=== PATIENT | female | born 1945 | race Caucasian/White ===

== ENCOUNTER 2024-04-23 10:01 | Outpatient (AMB) | payer MEDICARE, SELFPAY ==
--- NOTE | 2024-04-23 10:12 | MHC.OFFWIV ---
Intake Vital Signs 04/23/24 10:28 Height 5 ft 1 in Weight 139 lb BMI 26.3 BP 136/70 Blood Pressure Location Lt brachial Position Sitting Pulse 50 Pulse Source Pulse Oximeter Temp 97.4 F Temp Source Temporal Artery Scan Pulse Oximetry (%) 98 Oxygen Delivery Method Room Air Intake Visit Reasons: [employer]/right foot pain (lobby) Intake Note: pt is here today for rt foot pain started 5 weeks ago Patient Tobacco Use Status: Never used Tobacco Allergies No Known Allergies Allergy (Verified 04/23/24 11:18) Medication List - Last Reconciled 04/23/24 by Luis Bo MD amlodipine 2.5 mg PO DAILY atorvastatin 40 mg PO DAILY brimonidine 0.2% drps ophthalmic (eye) lisinopril-hydrochlorothiazide 20-12.5 mg 1 tab PO DAILY omeprazole 20 mg PO BID Do you need a note to return to daycare/school/sports/work: No HPI [employer]/right foot pain (lobby) HPI Details 79 yr old female presents to the office for a sick visit. 5 weeks ago, patient twisted her right ankle. Continues to have pain and has a limp while walking. Wants her ankle evaluated. PFSH Social History Patient Tobacco Use Status: Never used Tobacco Physical Exam Vital Signs: Last Vital Signs Temp 97.4 F 04/23/24 10:28 Pulse 50 04/23/24 10:28 BP 136/70 04/23/24 10:28 Pulse Ox 98 04/23/24 10:28 Oxygen Delivery Method Room Air 04/23/24 10:28 BMI result Body Mass Index 26.3 Extrem Other: Right foot: Swelling on the lateral margin. Tenderness over the lateral margin of the foot. Full inversion and eversion at the ankle. Assessment & Plan Assessment & Plan (1) Fracture of fifth metatarsal bone of right foot: Code(s): S92.351A - Displaced fracture of fifth metatarsal bone, right foot, initial encounter for closed fracture Plan: X ray shows a displaced fracture of the fifth metatarsal. Boot provided. Avoid weight bearing till evaluated by ortho MD Orders: Orders XR foot RT min 3V Today S93.401A - Sprain of unspecified ligament of right ankle, initial encounter Coding Level of Care Code Est Pt Level 4 (18455) Diagnoses Fracture of fifth metatarsal bone of right foot S92.351A
[2024-04-23 10:28] VITALS: BP 136/70; PULSE 50; TEMP 36.3; O2SAT 98; BMI 26.3
== END 2024-04-23 11:30 | disposition home or self-care (01) ==
PROVIDERS: Visit Provider Internal Medicine
DX: S92.351A Displaced fracture of fifth metatarsal bone, right foot, initial encounter for closed fracture (principal)
CPT/HCPCS: 99214

== ENCOUNTER 2024-04-23 11:10 | Outpatient (REF) | payer MEDICARE, SELFPAY ==
--- NOTE | ~2024-04-23 | XR_ITS ---
EXAMINATION: XR FOOT, RIGHT CLINICAL INFORMATION: Right foot pain. COMPARISON: None available. TECHNIQUE: AP, lateral, and oblique views of the right foot. FINDINGS: Mildly displaced, transverse fracture through the base of the fifth metacarpal with the fracture gap measuring up to 0.5 cm in AP dimension. The fracture line contacts the fifth tarsometatarsal articular surface. Degenerative spurring in the region of the peroneal brevis insertion. The No additional fracture or dislocation. No significant joint space narrowing or marginal osteophytes. No osseous erosion. Tiny plantar and dorsal calcaneal enthesophytes. Lateral soft tissue swelling. XR/XR foot RT min 3V IMPRESSION: 1. Mildly displaced, transverse fracture through the base of the fifth metacarpal which contacts the fifth tarsometatarsal articular surface. Lateral soft tissue swelling. 2. Tiny plantar and dorsal calcaneal spurs.
== END 2024-04-23 11:11 | disposition home or self-care (01) ==
LOC: HO.HMGCX 11:10
PROVIDERS: PCP Internal Medicine; Visit Provider Internal Medicine
DX: S93.401A Sprain of unspecified ligament of right ankle, initial encounter (principal)
CPT/HCPCS: 73630

== ENCOUNTER 2024-05-02 09:01 | Outpatient (AMB) | payer MEDICARE, SELFPAY ==
--- NOTE | 2024-05-02 09:02 | A.OFFVIS_ITS ---
Intake Visit Reasons: FC-5th metatarsal bone, RT foot, closed FC Intake Note: Melody is an 79 year old female who presents today for a evaluation of her right ankle pain. Patient reports 2 months ago she had twisted her right ankle. She expresses she continues to have pain and has a limp while walking. Patient w as given a boot in the walk in center. She states the pain has gotten better and her inflammation improved as well. Allergies No Known Allergies Allergy (Verified 05/02/24 09:18) [facility] FC-5th metatarsal bone, RT foot, closed FC: Details: 79-year-old female who presents in the office today, as a new patient, for an evaluation of right foot pain. Patient [facility] 04[facility]24 with a complaint of right foot pain status post twisting her ankle 5 weeks prior, around the end of 02/2024. X-rays were obtained. The patient was placed in a boot and instructed to remain non-weight bearing. While in the office today the patient reports she twisted her right ankle about 2 months ago, in 02/2024. She claims to have continued pain and a limp when ambulating. She reports being given a boot at the [facility]. She states her pain and inflammation has improved. [facility] Social History Patient Tobacco Use Status: Never used Tobacco Review of Systems Const All systems reviewed & are unremarkable except as noted in HPI and below Physical Exam Const General: cooperative and no acute distress Orientation/consciousness: patient oriented x3 Resp Effort & Inspection: normal respiratory effort and able to speak in complete sentences Cardio Rate: regular rate Peripheral pulses: Peripheral pulses 2+ throughout GI Palpation (GI): Soft to palpation Skin General skin exam: no rashes or lesions noted Lesions: no lesions Rashes: no rashes Neuro General: patient oriented x3 Extrem Other: Right foot/ankle: Normal to inspection. No ecchymosis, erythema, or edema. No tenderness to palpation over the base of the fifth metatarsal at the fracture site. Patient is able to demonstrate dorsiflexion, plantar flexion, pronation and supination. Negative anterior drawer. Sensation intact. Pedal Pulse intact. Assessment & Plan Assessment & Plan (1) Fracture of fifth metatarsal bone of right foot: Code(s): S92.351A - Displaced fracture of fifth metatarsal bone, right foot, initial encounter for closed fracture Plan Ms. Morocho is a 79-year-old female who presents in the office today, as a new patient, for an evaluation of right foot pain. Patient presented [facility] on 04/23/2024 with a complaint of right foot pain status post twisting her ankle 5 weeks prior, around the end of 02/2024. X-rays were obtained. The patient was placed in a boot and instructed to remain non-weight bearing. While in the office today the patient reports she twisted her right ankle about 2 months ago, in 02/2024. She claims to have continued pain and a limp when ambulating. She reports being given a boot at the [facility]. She states her pain and inflammation has improved. It has been roughly six weeks since her injury; therefore, she can start to wean out the boot as she can tolerate into a supportive shoe. I did offer the patient a follow-up in four weeks for repeat x-rays. However, she has declined at this time due to her symptoms having gradual improvement. I did inform her I am available to see her any time if she has any questions or concerns. Follow-up will be PRN, or sooner if needed. X-rays of the right foot which were obtained while in the office today and were reviewed by me, Bailey Jang PA-C, revealed routine healing of a base of the fifth metatarsal fracture. X-rays of the right foot/ankle, obtained on 04/23/2024, revealed: 1. Mildly displaced, transverse fracture through the base of the fifth metacarpal which contacts the fifth tarsometatarsal articular surface. Lateral soft tissue swelling. 2. Tiny plantar and dorsal calcaneal spurs. Orders: Orders XR foot RT min 3V Today M79.673 - Pain in unspecified foot Patient Instructions: Scribed by Codie Wesley director medical affairs, for Bailey Jang PA-C on 05/02/2024 at 9:10 am, EST. Coding Level of Care Code New Pt Level 4 (63177) Diagnoses Fracture of fifth metatarsal bone of right foot S92.351A
== END 2024-05-02 09:40 | disposition home or self-care (01) ==
PROVIDERS: PCP Internal Medicine; Visit Provider Physician Assistant
DX: S92.351A Displaced fracture of fifth metatarsal bone, right foot, initial encounter for closed fracture (principal)
CPT/HCPCS: 99203

== ENCOUNTER 2024-05-02 09:05 | Outpatient (REF) | payer MEDICARE, SELFPAY ==
--- NOTE | ~2024-05-02 | XR_ITS ---
EXAMINATION: XR FOOT, RIGHT CLINICAL INFORMATION: Pain nonspecified foot COMPARISON: 04/23/2024 TECHNIQUE: AP, lateral, and oblique views of the right foot. FINDINGS: Redemonstration of a mildly displaced fracture at the base of the fifth metatarsal. Fracture line again appears to extend to the fifth tarsometatarsal articular surface. There are tiny plantar and dorsal calcaneal spurs. There has been slight interval bridging callus formation. XR/XR foot RT min 3V IMPRESSION: Redemonstration of a mildly displaced fracture at the base of the fifth metatarsal. Fracture line again appears to extend to the fifth tarsometatarsal articular surface. There has been slight interval bridging callus formation.
== END 2024-05-02 09:06 | disposition home or self-care (01) ==
LOC: HO.HOSX 09:05
PROVIDERS: Visit Provider Physician Assistant
DX: S92.351D Displaced fracture of fifth metatarsal bone, right foot, subsequent encounter for fracture with routine healing (principal)
CPT/HCPCS: 73630; 99202

== ENCOUNTER 2025-03-13 19:57 | Emergency (ER) | payer MEDICARE, SELFPAY ==
--- NOTE | ~2025-03-13 | CT_ITS ---
CLINICAL HISTORY: fall with head strike, unknown LOC CT head without contrast Comparison: None Findings: No intra-axial mass, midline shift, hydrocephalus, or acute hemorrhage. No significant atrophy-like change or white matter disease. Intracranial atherosclerosis. There is no sinus or mastoid fluid. No acute findings in the orbits. There is no acute fracture. IMPRESSION: 1. No acute intracranial findings. This document has been electronically signed by: Anuj Christian MD on 03/13/2025 21:10:39
--- NOTE | ~2025-03-13 | CT_ITS ---
CLINICAL HISTORY: fall with head strike, unknown LOC CT cervical spine without contrast Comparison: None Findings: Straightening of the cervical spine is likely positional. Multilevel degenerative changes. No acute fractures or dislocations. Visualized intracranial contents are unremarkable. Bilateral carotid atherosclerosis. Lung apices are clear. IMPRESSION: No acute findings. This document has been electronically signed by: Anuj Christian MD on 03/13/2025 21:08:26
[2025-03-13 20:29] VITALS: BP 135/46; PULSE 68; RESP 18; TEMP 37.1; O2SAT 98; BMI 26.4
--- NOTE | 2025-03-13 20:29 | ED.GENADULT ---
HPI - General Adult General Chief complaint: Head Injury Stated complaint: fell head laceration Time Seen by Provider: 03/13/25 21:43 Source: patient Mode of arrival: ambulatory Limitations: no limitations History of Present Illness ED Provider: Dr. Mery Parra HPI narrative: Patient comes to the emergency room complaining of a head laceration to the back of the head. According to the patient, earlier today she received bad news, a good friend Zo . Patient states that she drank ann. Patient initially mentioned that she did not drink much and then changed her story that she might have drank more than she should have. Patient states that she fed her 3 dogs and took them out for a walk. Patient does not remember than what happened. Patient does not remember if she fell. At this time patient states that she has no pain other than localized pain in the laceration. Denies any chest pain or shortness of breath. Patient denies SI or HI Related Data Home Medications ?Medication ?Instructions ?Recorded ?Confirmed amlodipine 2.5 mg tablet 2.5 mg PO DAILY 04/23/24 atorvastatin 40 mg tablet 40 mg PO DAILY 04/23/24 brimonidine 0.2 % eye drops drp ophthalmic (eye) 04/23/24 lisinopril 20 1 tab PO DAILY 04/23/24 mg-hydrochlorothiazide 12.5 mg tablet omeprazole 20 mg capsule,delayed 20 mg PO BID 04/23/24 release Allergies Allergy/AdvReac Type Severity Reaction Status Date / Time No Known Allergies Allergy Verified 03/13/25 20:33 Review of Systems Review of Systems: Constitutional : No Weight loss, No Fever, No Chills, No Night Sweats, No Fatigue, No Malaise ENT/Mouth : No Hearing loss, No Ear Pain, No Nasal Congestion, No Sinus Pain, No Hoarseness, No sore throat, No Rhinorrhea, No Swallowing Difficulty Eyes: No Eye Pain, No Swelling, No Redness, No Foreign Body, No Discharge, No Vision Changes Cardiovascular : No Chest Pain, No SOB, No Dyspnea on Exertion, No Orthopnea, No Edema, No Palpitations Respiratory : No Cough, No Sputum, No Wheezing, No Smoke Exposure, No Dyspnea Gastrointestinal : No Nausea, No Vomiting, No Diarrhea, No Constipation, No abdominal Pain, No Hematochezia, No Melena Genitourinary : no irregular bleeding, No Dysuria, No Urinary Frequency, No Hematuria, No Urinary Incontinence, No Urgency, No Flank Pain, No Urinary Flow Changes, No Hesitancy Musculoskeletal : No joint pain, No Myalgias, No Joint Swelling Skin : Complaining of a laceration to the scalp Neuro : No Weakness, No Numbness, No Paresthesias, No Loss of Consciousness, No Dizziness, No Headache, complaining of syncopal episode Psych : No Anxiety/Panic, No Depression, No SI/HI/AH/VH, No Social Issues, Heme/Lymph: No Bruising, No Bleeding,No Lymphadenopathy Endocrine : No Polyuria, No Polydipsia, No Temperature Intolerance [facility], [facility] Social History Social History Alcohol intake: current Patient Tobacco Use Status: Never used Tobacco Physical Exam ED Vital Signs: Vital Signs - 24 hr 03/13/25 20:29 Temperature 98.8 F Pulse Rate 68 Respiratory Rate 18 Blood Pressure 135/46 L Pulse Oximetry 98 Oxygen Delivery Method Room Air BMI result Body Mass Index 26.4 Const Other: Appearance: Alert. Oriented X3. No acute distress. Eyes: Pupils equal, round and reactive to light. ENT: Pharynx normal. Neck: Normal inspection. Neck supple. No lymph nodes noted. No crepitus CVS: Normal heart rate and rhythm. Pulses normal. Normal S1 and S2 Respiratory: No respiratory distress. Breath sounds normal. No Wheezing. No rales Abdomen: Soft and nontender. No rigidity. No distention. Skin: Skin warm and dry. Normal skin color. Normal skin turgor. In the back of the scalp, patient has a 2 cm laceration. Slightly bleeding. Extremities: No lower extremity edema. No Lacerations. No Rash Neuro: Oriented X 3. No motor deficit. No sensory deficit. Moving all extremities. No slurred speech. CN 2 through 12 grossly intact Psych: calm, cooperative, normal affect Course Course Course Narrative: This is a rapid medical exam performed by Jhon Martinez NP: Additional HPI, ROS, PE not included below will be deferred to primary provider. Patient is an 79-year-old female on ASA presenting to the ED with head injury. She reports that she had some wine, then took the dog for a walk, unsure how she fell. Family reports that initially bystanders called 911 but patient refused ambulance transport. Pt then called stepdaughter who brought her to the ED. Patient reports ongoing bleeding. Unsure last Tdap. Plan: CT head, Tdap Medications Administered Discontinued Medications Generic Name Dose Route Start Last Admin Trade Name Freq PRN Reason Stop Dose Admin Diphtheria/Tetanus/Acell Pertussis 0.5 ml 03/13/25 20:31 03/13/25 21:39 Diphth,Pertus(Acell),Tet Adult 0.5 Ml Syringe IM 03/13/25 20:32 0.5 ml .ONCE ONE Administration Medical Decision Making Medical Decision Making MDM Narrative: Patient is awake, alert and oriented x3. Coherent. Patient states that she feels well, denies headache, denies neck pain. Patient is refusing any labs or stitches/julieta. I discussed with the patient that we do not know if something caused her to pass out other than alcohol or if she has had does she hit her head. Patient states that last week she had an appointment with her PCP, they checked labs and urine. Patient states that she is doing well. Patient also refused EKG at this time With pressure, the bleeding in the head stopped. Discussed with the patient that ideally we should put couple of julieta, but patient refused. Patient states that she feels well and would like to be discharged home. Patient states that she got a few shots in her last doctor's visit last week. Patient states that she will check with the PCP if she got a Tdap. I discussed with the patient that we can not rule out a pulmonary embolism, cardiac arrhythmia, silent heart attack. Patient states that she is sure that nothing is wrong and still declined any further evaluation I discussed the CT scan findings with the patient. CT scan of the head and cervical spine: No acute abnormalities Patient has steady gait Differential Diagnosis Differential Diagnoses: The differential diagnosis associated with the presentation includes Admission/Observation Consideration of admission/observation: Escalation of care including admission/observation considered (Given patient's age, unknown reason for syncope, admission/observation was considered. Patient declined any workup) Independent Interpretation I performed an independent interpretation of an: CT Scan Radiology Impression Discussion of test interpretation with radiology: I have reviewed the radiologist's reading. Radiologist Impression: Straightening of the cervical spine is likely positional. Multilevel degenerative changes. No acute fractures or dislocations. Visualized intracranial contents are unremarkable. Bilateral carotid atherosclerosis. Lung apices are clear. No intra-axial mass, midline shift, hydrocephalus, or acute hemorrhage. No significant atrophy-like change or white matter disease. Intracranial atherosclerosis. There is no sinus or mastoid fluid. No acute findings in the orbits. There is no acute fracture. Critical Care Time Critical Care Time Critical Care Time: Yes Total Critical Care Time: 35 Attestation: I have personally provided critical care time. Time includes review of lab data, radiology results, discussion with consultants, and monitoring for potential decompensation. Intervention performed as documented. Discharge Plan Discharge Clinical Impression: Syncope, Laceration of head Patient Disposition: Home, Self-Care Instructions: Head Laceration (ED), Syncope in Older Adults (ED) Additional Instructions: Please follow-up with your primary care physician tomorrow. If you have any worsening or new symptoms, please return to the emergency room or call 911 Prescriptions: No Action brimonidine 0.2 % drops ophthalmic (eye) amlodipine 2.5 mg tablet 2.5 mg PO DAILY atorvastatin 40 mg tablet 40 mg PO DAILY omeprazole 20 mg capsule,delayed release(DR/EC) 20 mg PO BID lisinopril-hydrochlorothiazide 20-12.5 mg tablet 1 tab PO DAILY Print Language: Togolese
--- NOTE | 2025-03-13 21:21 | PC.NURSE ---
pt talking in full clear sentences, confused at times, didnt know code to unlock phone, does report having ann today before fall. doesnt remember how she got here. head wound cleaned, no open lac seen, bleeding stopped
[2025-03-13] MEDS: Diphth,Pertus(ACell),Tet Adult 0.5 ML SYRINGE IM (21:39)
[2025-03-13 21:57] VITALS: BP 134/50; PULSE 56; RESP 16; TEMP 36.4; O2SAT 99
--- OUTSIDE RECORDS SUMMARY | 2025-03-13 22:00 | XMS_ITS | Continuity of Care Document ---
Author Organization [facility] Address [address] [place] [address]- Care Team Providers Care Superintendent Drilling And Production Name Role Phone Rohini Carcamo MD Primary Care Physician Encounter [facility] Date(s): 02/07/25 - 03/09/25 [facility] [address] [place] [address]- Encounter Type: Triage Allergies, Adverse Reactions, Alerts No Known Allergies Immunizations Given and Recorded Vaccine Date Status Refusal Reason RSV vaccine preF3, recombinant 08/16/24 Recorded influenza virus vaccine, inactivated 08/16/24 Colton rded influenza virus vaccine, inactivated 08/14/23 Colton rded influenza virus vaccine, inactivated 09/21/22 Colton rded influenza virus vaccine, inactivated 09/09/21 Colton rded influenza virus vaccine, inactivated 08/27/20 Colton rded influenza virus vaccine, inactivated 1 12/17/16 Re corded influenza virus vaccine, inactivated 2 09/27/16 Re corded influenza virus vaccine, inactivated 10/08/14 Give n influenza virus vaccine, inactivated 3 09/05/13 Gi lj SARS-CoV-2(COVID-19)mRNA-LNP vac([id number]) 08/16/24 Recorded SARS-CoV-2(COVID-19)mRNA-LNP vac([id number]) 08/14/23 Recorded tetanus/diphtheria/pertussis, acel(Tdap) 07/12/23 Recorded tetanus/diphtheria/pertussis, acel(Tdap) 4 09/05/13 Given zoster vaccine, inactivated 05/23/23 Recorded [id number] 12y+ bivalent booster vax 08/16/22 Recorded SARS-CoV-2 mRNA ([id number]) vax 03/17/22 Recorded SARS-CoV-2 (COVID-19) mRNA BNT-162b2 vac 08/27/21 Recorded SARS-CoV-2 (COVID-19) mRNA BNT-162b2 vac 01/27/21 Given SARS-CoV-2 (COVID-19) mRNA BNT-162b2 vac 01/06/21 Given pneumococcal 23-valent vaccine 12/20/18 Given pneumococcal 23-valent vaccine 08/06/09 Recorded pneumococcal 13-valent vaccine 12/14/17 Given pneumococcal 13-valent vaccine 5 02/09/15 Recorded Zoster Vaccine Live 6 06/17/15 Recorded Influenza Inactive (IM) (oldterm) 7 08/08/11 Given 1Result Comment: [12/20/2016] form sent to scanning 2Result Comment: [12/07/2016] As per pt-[facility] 3Admin Note: vis 05/28/13 4Admin Note: VIS GIVEN waiver signed and put to scanning 5Result Comment: [05/11/2016] pt states done at [facility] 6Location History: [facility] 7Admin Note: 06/21/11 VIS SHEET GIVEN Medications amLODIPine 2.5 mg oral tablet 1 tablet, By Mouth, Daily, # 90 tablet, 1 Refills, Maintenance, 02/07/25 12:51:00 PM EDT, [facility], 155, cm, 11/14/24 8:45:00 EST, Height, 61.2, kg, 07/23/24 12:26:00 EDT, Dry Weight Start Date: 02/07/25 Status: Ordered Quantity: 90.0 Unit: tablet Repeat number: 1 aspirin 81 mg oral tablet 1 tablet, By Mouth, Daily, # 30 tablet, 0 Refills, Maintenance, 08/02/11 3:47:18 PM EDT, Tablet Start Date: 08/02/11 Status: Ordered Quantity: 30.0 Unit: tablet Repeat number: 1 atorvastatin 40 mg oral tablet 1 tablet = 40 mg, By Mouth, Daily, # 90 tablet, 1 Refills, Maintenance, 10/04/24 7:02:00 AM EST, [facility], 153.2, cm, 07/23/24 12:54:00 EDT, Height, 61.2, kg, 07/23/24 12:26:00 EDT, Dry Weight Start Date: 10/04/24 Stop Date: 04/02/25 Status: Ordered Quantity: 90.0 Unit: tablet Repeat number: 2 blood pressure monitor and cuff blood pressure monitor and cuff, See Instructions, # 1 each, Refills 0, Tot. Refills 0, Maintenance, Blood pressure monitor and cuff DX: HTN I10, 10/26/21 9:12:00 AM EST, Supply Start Date: 10/26/21 Status: Ordered Quantity: 1.0 Unit: each Repeat number: 1 hydrochlorothiazide-lisinopril 12.5 mg-20 mg oral tablet 1 tablet, By Mouth, Daily, d/c lisinopril 20 and hydrochlorothiazide 12.5, # 90 tablet, 1 Refills, Maintenance, 11/28/24 11:30:00 AM EST, Tablet, [facility], Partial fill upon patient request if the prescription is for a schedule II opioid drug., 1 tablet By Mouth Daily,Instr:d/c lisinopril 20 and hydrochlorothiazide 12.5, 155, cm, 11/14/24 8:45:00 EST, Height, 61.2, kg, 07/23/24 12:26:00 EDT,Dry Weight Start Date: 11/28/24 Status: Ordered Quantity: 90.0 Unit: tablet Repeat number: 2 Metoprolol Succinate ER 50 mg oral tablet, extended release See Instructions, TAKE 1 TABLET BY MOUTH DAILY, # 90 tablet, Refills 1, Tot. Refills 1, Maintenance, 11/28/24 11:30:00 AM EST, Instructions Replace Required Details, Route to Pharmacy Electronically, [facility], 155, cm, 11/14/24 8:45:00 EST, Height, 61.2, kg, 07/23/24 12:26:00 EDT, Dry Weight Start Date: 11/28/24 Status: Ordered Quantity: 90.0 Unit: tablet Repeat number: 2 omeprazole 20 mg oral enteric coated capsule See Instructions, TAKE 1 CAPSULE BY MOUTH TWICE DAILY, # 60 capsule, 5 Refills, Maintenance, 09/16/24 11:27:00 AM EDT, [facility], 153.2, cm, 07/23/24 12:54:00 EDT, Height, 61.2, kg, 07/23/24 12:26:00 EDT, Dry Weight Start Date: 09/16/24 Status: Ordered Quantity: 60.0 Unit: capsule Repeat number: 6 Pneumovax 23 injectable solution 0.5 mL, Intramuscular, Once, # 0.5 mL, 0 Refills, Soft Stop, 12/07/16 10:57:41 PM EST, Solution, [facility], 0.5 mL Intramuscular Once Start Date: 12/07/16 Status: Ordered Quantity: 0.5 Unit: mL Repeat number: 1 Shingrix intramuscular injection 0.5 mL, Intramuscular, Once, repeat dose in 2 to 6 months, # 0.5 mL, 1 Refills, Soft Stop, 05/23/23 9:31:00 AM EDT, [facility]/pharmacy #[id number], 0.5 mL Intramuscular Once,Instr:repeat dose in 2 to 6 months, 153.2, cm, 05/17/23 11:02:00 EDT, Height, 62.36, kg, 11/16/22 8:06:00 EST, Dry Weight Start Date: 05/23/23 Status: Ordered Quantity: 0.5 Unit: mL Repeat number: 2 Problem List Condition Confirmation Course Effective Dates Status H ealth Status Informant Coronary artery disease Confirmed Active GERD (gastroesophageal reflux disease) Confirmed Active History of endometrial cancer Confirmed Active HTN - Hypertension Confirmed Active Hyperlipidemia 272.4 Confirmed Active IFG (impaired fasting glucose) Confirmed Active Arthritis of foot Confirmed Active Localized skin mass, lump, or swelling Confirmed Active Medicare annual wellness visit, subsequent Confirmed Active Social History Social History Type Response Smoking Status Never smoker; Previo us treatment: None; Interested in cessation: No entered on: 12/07/16 Sex Sex Representation Female (finding) Patient Care team information Care Team Personnel Name: Rohini Carcamo MD Position: [facility] Physician - Primary Care Member Role: PCP Address: [address] [place] [phone] Telecom: Name: Neftali De La Cruz RN Position: [facility] RN Member Role: Primary Care Nurse Care Team Related Persons Name: EDIE MEDINA Name: JULIO CESAR RODRÍGUEZ Name: ROHINI RODRÍGUEZ Insurance Providers Guarantor name: JOSE ANGEL RODRÍGUEZ Health Plan Information #: 1 Payer: MEDICARE PART B OUTPT Member Number: NA Policy Number: NA Group Number: NA Health Plan Information #: 2 Payer: MEDEX Member Number: NA Policy Number: NA Group Number: NA
--- OUTSIDE RECORDS SUMMARY | 2025-03-13 22:01 | XMS_ITS ---
[facility] Address [address] [place] [address] Care Team Providers Care Brick Catcher Name Role Phone Erik Carcamo MD Primary Care Provider Gary Stanton [phone] REASON FOR VISIT cx ON 07/24 Encounters Encounter Location Date Provider Diagnosis [facility] [address] [place] [address] 04/30/2024 Gary Caceres Plan Of Treatment No Information Progress Notes * Melody RODRÍGUEZ MDOB: [birth year] (79 yo F)Acc No.[id number]:04/30/2024 Patient:?Melody Rodríguez :1945???Age:79 Y???Sex:Female Address:[address] [place], [address] * true * Date:? Generated for Printi ng/Fajerryg/eTransmitting on:?03/13/2025 10:01 PM EDT
--- OUTSIDE RECORDS SUMMARY | 2025-03-13 22:01 | XMS_ITS ---
Author Organization [facility] Address [address] [place] [address] Care Team Providers Care Sports Marketing Specialist Name Role Phone Erik Carcamo MD Primary Care Provider Gary Stanton [facility] [phone] Encounters Encounter Location Date Provider Diagnosis [facility] [address] [place] [address] 07/24/2024 Gary Caceres Plan Of Treatment No Information Progress Notes * Melody RODRÍGUEZ MDOB: [birth year] (79 yo F)Acc No.[id number]:07/24/2024 Progress Notes Patient:?Melody RODRÍGUEZ Provider:?Gary Caceres DPM :1945???Age:79 Y???Sex:Female D ate:07/24/2024 Address:[address] [place], [place]-[id number] Pcp:Erik Carcamo MD Subjective: * Chief Complaints: * ??? * Medical History:? Objective: * Vitals:? Assessment: Plan: * Treatment: * Images: * The named appointment provid er may or may not be the originator of this progress note, and it is not deemed complete until electronically signed by the appointment provider. Sign off status: Pending * Provider:Destiny Caceres DPM Date:? 024 Generated for Printi ng/Faxing/eTransmitting on:?03/13/2025 10:00 PM EDT
--- OUTSIDE RECORDS SUMMARY | 2025-03-13 22:01 | XMS_ITS | Patient Health Record ---
[facility] Address [address] [place] [address] Care Team Providers Care Actuarial Intern Name Role Phone Erik Carcamo MD Primary Care Provider Gary Stanton Unavailable [phone] Reason For Referral No Information Medications Medication SIG (Take, Route, Frequency, Duration) Notes Start Date End Date Status Rosuvastatin Calcium 20 MG 1 tablet Oral ly Once a day for 30 day(s) Active Omeprazole 10 MG 1 capsule 30 minutes before morning meal Orally Once a day for 30 day(s) Active Metoprolol Succinate 50 MG 1 capsule Ora lly Once a day for 30 day(s) Active Lisinopril 2.5 MG 1 tablet Orally Once a day for 30 day(s) 05/20/2020 Active Baby Aspirin 81mg Ac tive Social History Tobacco Use: Social History Observation Description Date Details (start date - stop date) Never Smoker NA - NA Tobacco Use/Smoking Question Answer Notes Are you a: nonsmoker Additional Findings: Tobacco Non-User Current no n-smoker Alcohol Screen Question Answer Notes Did you have a drink containing alcohol in the p ast year? Yes Points 0 Interpretation Negative Tobacco use other than smoking: Question Answer Notes Are you an other tobacco user? No Problems Problem Type SNOMED Code ICD Code Onset Dates Problem Status W/U Status Risk Notes Problem Localized, primary osteoarthritis of the ankle and/or foot (937739711) Primary osteoarthrit is, right ankle and foot (M19.071) Active confirmed Problem Localized, primary osteoarthritis of the ankle and/or foot (022836801) Primary osteoarthrit is, left ankle and foot (M19.072) Active confirmed Encounters Encounter Location Date Provider Diagnosis [facility] [address] [place] [address] 04/23/2024 [facility] [address] [place] [address] 04/30/2024 Gary Caceres Plan Of Treatment Pending Test Test Name Order Date X ray : Foot, left 3V 06/08/2020 X ray : Foot, right 3V 06/08/2020 [id number], [id number]/INJECT, JOINT/BURSA 0 07/09/2020 Insurance Providers Payer Name Payer Address Payer Phone Subscriber Number Group Number Insured Name Patient Relationship to Insured Coverage Start Date Coverage End Date Medicare [employer] [address] [place] [address] [id number] Melody Morocho Self - patient is the insured [employer] [address] [place] [address] [phone] [id number] Melody Morocho Self - patient is the insured Medical (General) History Medical History History ICD Code Heart disease Cataracts Glaucoma Measles Chicken pox stent Surgical History Surgery Date(Month/Year) Circ 06/02/09
[2025-03-13 22:18] VITALS: BP 134/50; PULSE 56; RESP 16; TEMP 36.4; O2SAT 99
== END 2025-03-13 22:19 | disposition home or self-care (01) ==
PROVIDERS: Emergency Provider Emergency Medicine; PCP Internal Medicine
DX: S01.01XA Laceration without foreign body of scalp, initial encounter (principal); W01.0XXA Fall on same level from slipping, tripping and stumbling without subsequent striking against object, initial encounter; R55 Syncope and collapse; Y93.K1 Activity, walking an animal; Y92.480 Sidewalk as the place of occurrence of the external cause; Y99.9 Unspecified external cause status; Z23 Encounter for immunization
CPT/HCPCS: 70450; 72125; 90471; 90715; 99284

== ENCOUNTER → 2025-03-13 20:32 | Outpatient (BNV) | payer MEDICARE, SELFPAY | PROVIDERS: Emergency Provider Emergency Medicine; PCP Internal Medicine; Visit Provider Radiology Diagnostic Radiology | DX: S09.90XA Unspecified injury of head, initial encounter (principal); W19.XXXA Unspecified fall, initial encounter | CPT/HCPCS: 70450; 72125 ==